=== PATIENT | female | born 1995 | race Caucasian/White ===

== ENCOUNTER 2023-04-26 10:08 | Emergency (ER) | payer OTHER ==
[~2023-04-26] VITALS: Ht 162.6 cm; Wt 59.0 kg
[2023-04-26 10:28] VITALS: BP 116/5
--- NOTE | 2023-04-26 10:55 | NUR ---
pt swabbed for covid(jessica) and flu. walked and handed to lab
[2023-04-26] MEDS ORDERED: ALBU0.0912 INH (13:14)
[2023-04-26] MEDS ORDERED: BENZ200C4 PO (13:14)
[2023-04-26] MEDS ORDERED: ONDA-188 SL (13:15)
--- NOTE | 2023-04-26 14:14 | NUR ---
Patient discharged with v/s stable. Written and verbal after care instructions FOR ACUTE BRONCHITIS AND GENERAL HEADACHE given and explained. Patient alert, oriented and verbalized understanding of instructions. Ambulatory with steady gait. All questions addressed prior to discharge. ID band removed. Patient advised to follow up with PMD. Rx of BENZONATATE,ZOFRAN AND ALBUTEROL SULFATE given. Opportunity to ask questions provided and answered.
--- NOTE | 2023-04-26 16:38 | NUR ---
The patient's care was reviewed and supervised by [facility], RN.
== END 2023-04-26 14:14 | disposition home or self-care (01) ==
LOC: MED 10:08
DX: J20.9 Acute bronchitis, unspecified (principal); R51.9 Headache, unspecified; R11.0 Nausea; Z20.822 Contact with and (suspected) exposure to COVID-19; Z79.899 Other long term (current) drug therapy
CPT/HCPCS: 71045; 99284